=== PATIENT | female | born 1965 | race African-American/Black ===

== ENCOUNTER 2020-10-14 15:26 | Emergency (ER) | payer SELFPAY ==
[~2020-10-14] VITALS: Ht 167.6 cm; Wt 70.3 kg
--- NOTE | 2020-10-14 15:45 | NUR ---
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 Patient states that she almost passed out but did not lose consciousness. Denies any chest pain or palpitations, denies dizziness or numbness. Patient is alert oriented x4. Warm to touch, non tachycardic, nondiaphoretic. O s/sx of respiratory distress noted. Will continue to monitor
[2020-10-14] MEDS: IV NS 0.9% 1,000 ML BAG IV ONE (16:07)
[2020-10-14 16:35] LABS: BASOPHILS % (AUTO) 0.5 % (0.0-2.0); EOSINOPHILS % (AUTO) 0.5 % (0.0-6.0); HEMATOCRIT 39 % (33-45); HEMOGLOBIN 13.4 g/dL (11.5-14.8); LYMPHOCYTES # (AUTO) 1.8 K/uL (0.8-4.8); LYMPHOCYTES % (AUTO) 27.4 % (20.0-44.0); MEAN CORPUSCULAR HGB CONC 34 g/dl (31.0-36.0); MEAN CORPUSCULAR VOLUME 98 fL (82-100); MONOCYTES # (AUTO) 0.4 K/uL (0.1-1.30); MONOCYTES % (AUTO) 5.5 % (2.0-12.0); NEUTROPHILS # (AUTO) 4.3 K/uL (1.8-8.9); NEUTROPHILS % (AUTO) 66.1 % (43.0-81.0); PLATELET COUNT (AUTO) 235 K/uL (150-450); WHITE BLOOD COUNT (AUTO) 6.5 K/uL (4.3-11.0)
[2020-10-14 16:42] LABS: CALCIUM, SERUM 8.1 mg/dL (8.5-10.1); POTASSIUM 4.1 mmol/L (3.5-5.1)
--- NOTE | 2020-10-14 18:27 | NUR ---
Patient discharged to home in stable condition. Written and verbal after care instructions given. Patient verbalizes understanding of instruction.
[2020-10-14 18:28] VITALS: BP 131/85
== END 2020-10-14 18:28 | disposition home or self-care (01) ==
LOC: ER 15:29
DX: R55 Syncope and collapse (principal)
CPT/HCPCS: 36415; 71045-TC; 80048-TC; 84484-TC; 85025-TC